=== PATIENT | female | born 1975 | race Caucasian/White ===

== ENCOUNTER 2019-06-28 05:59 | Day surgery (SDC) | payer BC ==
[2019-06-28] MEDS ORDERED: MIDAZOLAM HCL 2MG/2ML VIAL IV ONE (06:00)
[2019-06-28] MEDS ORDERED: FENTANYL PF 100MCG/2ML VIAL IV ONE (06:00)
[2019-06-28] MEDS ORDERED: LIDOCAINE 2% MDV (20MG/ML) 20ML VIAL IV ONE (06:00)
[2019-06-28] MEDS ORDERED: PROPOFOL 10 MG/ML VIAL IV ONE (06:00)
[2019-06-28] MEDS ORDERED: KETOROLAC 30 MG/ML VIAL IVP ONE (06:00)
[2019-06-28] MEDS ORDERED: ONDANSETRON HCL IV 4 MG/2 ML VIAL IVP ONE (06:00)
[2019-06-28] MEDS ORDERED: SEVOFLURANE 250 ML INH ONE (06:00)
[2019-06-28 06:25] LABS: BASO % 0.2 % (0-6); EOS % 0.5 % (0-6); GRAN % 63.4 % (47-80); HEMATOCRIT 41.2 % (35.0-47.0); HEMOGLOBIN 13.7 gm/dl (11.6-16.0); MEAN CELL VOLUME 90.4 fl (81-97); MEAN CORPUSCULAR HGB CONC 33.3 g/dl (32-36); MEAN PLATELET VOLUME 9.3 fl (7.4-10.4); MONO % 8.9 % (0-9); PLATELET COUNT 331 K/uL (130-400); RED BLOOD COUNT 4.56 M/uL (3.80-5.40); WHITE BLOOD COUNT W/O DIFF 8.2 K/uL (4.2-12.2)
[2019-06-28] MEDS ORDERED: RINGERS SOLUTION,LACTATED 1,000 ML IV ONE (06:36)
[2019-06-28] MEDS ORDERED: SCOPOLAMINE 1 PATCH TDSY TD ONE (06:47)
[2019-06-28] MEDS ORDERED: ACETAMINOPHEN W/ CODEINE 300MG/30MG TABLET PO ONE (08:55)
--- NOTE | 2019-07-04 10:51 | Operative Note ---
DATE OF SURGERY: 06/28/2019 PREOPERATIVE DIAGNOSIS: Abnormal uterine bleeding. POSTOPERATIVE DIAGNOSIS: Abnormal uterine bleeding. OPERATION: Operative hysteroscopy, dilation and curettage, endometrial ablation with NovaSure. SURGEON: Gabby Diana DO ANESTHESIA: General LMA. SPECIMENS: Endometrial curettings. ESTIMATED BLOOD LOSS: Minimal. FLUIDS: Per Anesthesia. DRAINS: 100 mL of clear yellow urine drained prior to procedure. FINDINGS: The patient has a nabothian cyst noted on her anterior cervix at approximately 7-o'clock, bilateral ostia visualized, anterior uterine wall appears fluffy and almost polypoid, uterus tilted off to the patient's left and sounded to 9 cm. PROCEDURE: The patient was taken to the operating room and general anesthesia was obtained with difficulty. She was prepped and draped in a normal sterile fashion in the dorsal lithotomy position. A weighted speculum was placed in the patient's vagina and the anterior lip of the cervix was grasped with a single tooth tenaculum. The cervix was gently dilated with Hanks dilators and sounded to 9 cm. The TruClear hysteroscope was then primed according to protocol and gently introduced to the uterine fundus with findings as noted above. Pictures were taken. Both ostia were seen. The transition was made for operative hysteroscope to sample her endometrium in a 360-degree fashion. The fluffy endometrial tissue noted anteriorly was directly sampled with the operative arm of the hysteroscope after window locking procedure was performed. The hysteroscope was then removed and the cervic was dilated to allow for the NovaSure device. The NovaSure device was then primed according to protocol and set at a length of 4 cm. It was gently introduced through the uterine fundus and opened. The width was measured at 4.2 cm. The NovaSure device was then activated after a cavity assessment was successful. It ran for 1 minute 57 seconds at a power of 92. Afterward, the device was cooled. It was retracted and removed from the endometrial cavity. The single tooth tenaculum was removed from the anterior lip of the cervix with excellent hemostasis. All instruments were removed from the vagina. The patient tolerated the procedure well. Fluid deficient on the TruClear device was noted to be 350 mL. Sponge and lap counts were correct. The patient was taken to the recovery room awake and in stable condition. [facility]
== END 2019-06-28 09:25 | disposition home or self-care (01) ==
LOC: SUR 05:59
PROVIDERS: ATTEND Student in an Organized Health Care Education/Training Program
DX: N93.9 Abnormal uterine and vaginal bleeding, unspecified (principal); N88.8 Other specified noninflammatory disorders of cervix uteri; G89.18 Other acute postprocedural pain; R10.30 Lower abdominal pain, unspecified; R11.0 Nausea
CPT/HCPCS: 80048; 85025; 85027; 96374; 96375; 99284; J1885; J2405; J7030; J7120

== ENCOUNTER 2019-06-28 11:55 | Emergency (ER) | payer BC ==
[2019-06-28] MEDS ORDERED: ONDANSETRON HCL IV 4 MG/2 ML VIAL IVP ONE (12:14)
[2019-06-28] MEDS ORDERED: 0.9 % SODIUM CHLORIDE 1000ML 1,000 ML IV ONE (12:18)
[2019-06-28] MEDS ORDERED: HYDROMORPHONE HCL 2 MG/ML VIAL IVP ONE (12:20)
[2019-06-28 12:45] LABS: ABSOLUTE NEUTROPHIL COUNT 8.54; HEMATOCRIT 38.7 % (35.0-47.0); HEMOGLOBIN 12.8 gm/dl (11.6-16.0); MEAN CELL VOLUME 90.4 fl (81-97); MEAN CORPUSCULAR HEMOGLOBIN 29.9 pg (27-33); MEAN CORPUSCULAR HGB CONC 33.1 g/dl (32-36); MEAN PLATELET VOLUME 9.5 fl (7.4-10.4); PLATELET COUNT 303 K/uL (130-400); RED BLOOD COUNT 4.28 M/uL (3.80-5.40); RED CELL DISTRIBUTION WIDTH 12.8 % (11.5-14.5); WHITE BLOOD COUNT W/O DIFF 9.7 K/uL (4.2-12.2)
[2019-06-28 12:53] LABS: BLOOD UREA NITROGEN 13 mg/dL (6-20)
[2019-06-28 12:54] LABS: CREATININE 0.8 mg/dL (0.5-0.9); EST GLOMERULAR FILTRATION RATE > 60 mL/min
[2019-06-28 12:56] LABS: GLUCOSE,RANDOM 113 mg/dL (74-109)
[2019-06-28 13:04] LABS: PLATELET ESTIMATE NORMAL (NORMAL)
--- NOTE | 2019-06-28 13:51 | Emergency Department Record ---
History of Present Illness - General Chief Complaint: Abdominal Pain Stated Complaint: POST OP ISSUES CRAMPING/NAUSEA Time Seen by Provider: 06/28/19 12:18 Source: Patient, RN notes reviewed Mode of Arrival: Ambulatory - History of Present Illness Initial Comments: patient returns to the hospital with abdominal pain located in the suprapubic area and bilateral lower abd pain and she took one tylenol #3 and when the pain didn't let up she returned to the hospital. patient had uterine ablation and uterine polps removed. Onset/Timin -: Hour(s) Improves With: Nothing Worsens With: Nothing Associated Symptoms: Nausea - Related Data Home Medications Medication Instructions Recorded Confirmed Last Taken Acetaminop W/ Codeine 300/30Mg 1 tab PO Q6H 06/28/19 06/28/19 06/28/19 [Tylenol #3] Minocycline HCl 100 mg PO BID 06/28/19 06/28/19 06/21/19 Previous Rx's Medication Instructions Recorded Hydrocodone/APAP 5/325Mg [Avery 1 each PO Q6H #12 tab 06/28/19 5Mg/325Mg] Ibuprofen [Motrin 400Mg] 600 mg PO Q6H PRN #40 tablet 06/28/19 Ibuprofen [Motrin 600Mg] 600 mg PO Q6H #40 tablet 06/28/19 Ondansetron HCl [Zofran] 4 mg PO Q6HR #20 tablet 06/28/19 Allergies Allergy/AdvReac Type Severity Reaction Status Date / Time No Known Allergies Allergy Unverified 12/18/15 09:58 Travel Screening - Travel/Exposure Within Last 30 Days Have you traveled within the last 30 days?: No - Travel/Exposure Within Last Year Have you traveled outside the [place] in the last year?: No - Additonal Travel Details Have you been exposed to anyone with a communicable illness?: No Review of Systems Reviewed: No additional complaints except as noted below Constitutional: Reports: As per HPI. Denies: Chills, Fever, Malaise, Night sweats, Weakness, Weight change Eyes: Reports: As per HPI. Denies: Eye discharge, Eye pain, Photophobia, Vision change ENT: Reports: As per HPI. Denies: Congestion, Dental pain, Ear pain, Epistaxis, Hearing loss, Throat pain Respiratory: Reports: As per HPI. Denies: Cough, Dyspnea, Hemoptysis, Stridor, Wheezes Cardiovascular: Reports: As per HPI. Denies: Arrhythmia, Chest pain, Dyspnea on exertion, Edema, Murmurs, Orthopnea, Palpitations, Paroxysmal nocturnal dyspnea, Rheumatic Fever, Syncope Endocrine: Reports: As per HPI. Denies: Fatigue, Heat or cold intolerance, Polydipsia, Polyuria Gastrointestinal: Reports: As per HPI, Abdominal pain. Denies: Constipation, Diarrhea, Hematemesis, Hematochezia, Melena, Nausea, Vomiting Genitourinary: Reports: As per HPI. Denies: Abnormal menses, Discharge, Dyspareunia, Dysuria, Frequency, Hematuria, Incontinence, Retention, Urgency Musculoskeletal: Reports: As per HPI. Denies: Arthralgia, Back pain, Gout, Joint swelling, Myalgia, Neck pain Skin: Reports: As per HPI. Denies: Bruising, Change in color, Change in hair/nails, Lesions, Pruritus, Rash Neurological: Reports: As per HPI. Denies: Abnormal gait, Confusion, Headache, Numbness, Paresthesias, Seizure, Tingling, Tremors, Vertigo, Weakness Psychiatric: Reports: As per HPI. Denies: Anxiety, Auditory hallucinations, Depression, Homicidal thoughts, Suicidal thoughts, Visual hallucinations Hematological/Lymphatic: Reports: As per HPI. Denies: Anemia, Blood Clots, Easy bleeding, Easy bruising, Swollen glands Past Medical History - SOCIAL HISTORY Smoking Status: Never smoker Alcohol Use: Occasional Drug Use: None - RESPIRATORY Hx Respiratory Disorders: Yes Hx Bronchitis: Yes (NOTHING RECENT) Hx Pneumonia: Yes (NOTHING RECENT) - CARDIOVASCULAR Hx Cardio Disorders: No - NEURO Hx Neuro Disorders: No - GI Hx GI Disorders: No - Hx Genitourinary Disorders: Yes Comment:: S/P TUBAL LIGATION 1999 - ENDOCRINE Hx Endocrine Disorders: No - MUSCULOSKELETAL Hx Musculoskeletal Disorders: No - PSYCH Hx Psych Problems: Yes Hx Anxiety: Yes (MINOR) - HEMATOLOGY/ONCOLOGY Hx Hematology/Oncology Disorders: No Family Medical History Any Significant Family History?: No Hx Cancer: Mother, Grandparents Hx Resp Disorders: Father, Mother, Grandparents Hx Stroke: Grandparents Physical Exam - General General Appearance: Alert, Oriented x3, Cooperative, No acute distress - Head Head exam: Normal inspection - Eye Eye exam: Normal appearance, PERRL Pupils: Normal accommodation - ENT ENT exam: Normal exam, Mucous membranes moist, Normal external ear exam, Normal orophraynx, TM's normal bilaterally Ear exam: Normal external inspection. negative: External canal tenderness Nasal Exam: Normal inspection. negative: Discharge, Sinus tenderness Mouth exam: Normal external inspection, Tongue normal Teeth exam: Normal inspection. negative: Dental caries Throat exam: Normal inspection. negative: Tonsillar erythema, Tonsillar exudate - Neck Neck exam: Normal inspection, Full ROM. negative: Tenderness - Respiratory Respiratory exam: Normal lung sounds bilaterally. negative: Respiratory d istress - Cardiovascular Cardiovascular Exam: Regular rate, Normal rhythm, Normal heart sounds - GI/Abdominal GI/Abdominal exam: Soft, Normal bowel sounds. negative: Tenderness - Rectal Rectal exam: Deferred - exam: Deferred - Extremities Extremities exam: Normal inspection, Full ROM, Normal capillary refill. negative: Tenderness - Back Back exam: Reports: Normal inspection, Full ROM. Denies: Muscle spasm, Rash noted, Tenderness - Neurological Neurological exam: Alert, Normal gait, Oriented X3, Reflexes normal - Psychiatric Psychiatric exam: Normal affect, Normal mood - Skin Skin exam: Dry, Intact, Normal color, Warm Course Vital Signs 06/28/19 06/28/19 12:02 12:37 Temperature 97.8 F Pulse Rate 66 Pulse Rate [ 76 Pulse Ox Probe] Respiratory 20 16 Rate Blood Pressure 104/64 Blood Pressure 113/68 [Right Arm] Pulse Ox 98 98 - Reevaluation(s) Reevaluation #1: discussed case with Dr Diana [employer] surgeon and will change her pain meds to norco and [id number] mgs 06/28/19 13:52 Reevaluation #2: patient is feeling better 06/28/19 14:09 Medical Decision Making - Lab Data Result diagrams: 06/28/19 12:38 06/28/19 12:38 Lab Results 06/28/19 06/28/19 Range/Units 12:38 12:38 WBC 9.7 (4.2-12.2) K/uL RBC 4.28 (3.80-5.40) M/uL Hgb 12.8 (11.6-16.0) gm/dl Hct 38.7 (35.0-47.0) % MCV 90.4 (81-97) fl MCH 29.9 (27-33) pg MCHC 33.1 (32-36) g/dl RDW 12.8 (11.5-14.5) % Plt Count 303 (130-400) K/uL MPV 9.5 (7.4-10.4) fl Neutrophils % 88.0 H (47-80) % Band Neutrophils % 2.0 (0-5) % Eosinophils % Not Reportable Basophils % Not Reportable Absolute Neutrophils 8.54 Lymphocytes 5.0 L (16-45) % Monocytes 4.0 (0-9) % Basophils 0.0 (0-6) % Platelet Estimate Normal (NORMAL) RBC Morphology Normal Eosinophil Count 1.0 (0-6) % Sodium 137 (136-145) mmol/L Potassium 4.1 (3.4-4.5) mmol/L Chloride 102 (98-107) mmol/L Carbon Dioxide 25.0 (22-29) mmol/L Anion Gap 10.0 (7-16) BUN 13 (6-20) mg/dL Creatinine 0.8 (0.5-0.9) mg/dL Estimated GFR > 60 mL/min Random Glucose 113 H (74-109) mg/dL Calcium 9.0 (8.6-10.0) mg/dL Disposition Clinical Impression: Abdominal pain Qualifiers: Abdominal location: lower abdomen, unspecified Qualified Code(s): R10.30 - Lower abdominal pain, unspecified Disposition: Home, Self-Care Condition: (1) Good Instructions: Abdominal Pain (ED) Additional Instructions: follow up with Dr Diana as planned stop tylenol #3 use motrin 600 mg every 6 hours and norco every 6 hours alternate every 3 hours Prescriptions: Ondansetron HCl [Zofran] 4 mg PO Q6HR #20 tablet Ibuprofen [Motrin 400Mg] 600 mg PO Q6H PRN #40 tablet PRN Reason: Pain - Moderate (5-7) Ibuprofen [Motrin 600Mg] 600 mg PO Q6H #40 tablet Hydrocodone/APAP 5/325Mg [Avery 5Mg/325Mg] 1 each PO Q6H #12 tab Time of Disposition: 14:09 Quality - Quality Measures Quality Measures: N/A - Blood Pressure Screening Does Patient Have Any of the Following: No Blood Pressure Classification: Normal BP Reading Systolic Measurement: 104 Diastolic Measurement: 64 Screening for High Blood Pressure: < Normal BP, F/U Not Required > [[id number]]
== END 2019-06-28 14:20 | disposition home or self-care (01) ==
LOC: ER 11:55
DX: G89.18 Other acute postprocedural pain (principal); R10.30 Lower abdominal pain, unspecified; R11.0 Nausea
CPT/HCPCS: 80048; 85027; J2405; J7030